=== PATIENT | male | born 1980 | race Caucasian/White ===

== ENCOUNTER 2016-08-13 16:20 | Emergency (ER) | payer SELFPAY ==
[~2016-08-13] VITALS: Ht 190.5 cm; Wt 84.0 kg
[~2016-08-13 16:20] MED LIST: PERC5TAB12 PO; PRAV20TA2 PO; ZOFR4TAB PO
[2016-08-13 16:23] VITALS: BP 143/93; PULSE 97; RESP 24; TEMP 97.4; O2SAT 99
--- NOTE | 2016-08-13 16:29 | PD ---
Physical Exam Date Seen by Provider: Aug 13, 2016 Time Seen by Provider: 16:26 Narrative 35 YOWM 1 WEEK L FLANK PAIN WITH KIDNEY STONE WORSE TODAY WITH PAIN IN SCROTUM, N/V. SUBJECTIVE F/C. POS ABD PAIN. H/O HTN VSS AWAITING BED PLACEMENT Data Data Last Documented VS Vital Signs Date Time Temp Pulse Resp B/P Pulse Ox O2 Delivery O2 Flow Rate FiO2 08/13/16 16:23 97.4 97 24 143/93 99 Room Air [facility] Medical Record Reviewed: Yes Supervised Visit with JOCELIN: Yes Kevin Stewart Aug 13, 2016 16:29
[2016-08-13] MEDS ORDERED: TAMS5CAP PO (20:35)
[2016-08-13] MEDS ORDERED: KETO10 PO (20:35)
[2016-08-13] MEDS ORDERED: PROM25TA5 PO (22:14)
[2016-08-13] MEDS ORDERED: DILA4TAB2 PO (22:14)
== END 2016-08-13 18:00 | disposition left against medical advice (07) ==
LOC: NED 16:20
DX: R10.9 Unspecified abdominal pain (principal); Z53.29 Procedure and treatment not carried out because of patient's decision for other reasons
CPT/HCPCS: 99283

== ENCOUNTER 2016-08-13 18:51 | Emergency (ER) | payer SELFPAY ==
[~2016-08-13] VITALS: Ht 190.5 cm; Wt 109.5 kg
[2016-08-13 19:05] VITALS: BP 149/95; PULSE 86; RESP 18; TEMP 98; O2SAT 100
[2016-08-13] MEDS ORDERED: TAMS5CAP PO (20:35)
[2016-08-13] MEDS ORDERED: KETO10 PO (20:35)
[2016-08-13 20:43] VITALS: BP 153/81; PULSE 85; O2SAT 98
--- NOTE | 2016-08-13 20:58 | PD ---
HPI . Left flank pain Chief Complaint: Flank/Kidney Pain Time Seen by Provider: 20:46 Travel History International Travel<30 days: No Contact w/Intl Traveler<30days: No Traveled to known affect area: No History of Present Illness HPI Patient presents with left flank pain. He states he had an episode of flank pain about a week ago but it spontaneously resolved. It recurred at about 0800 today. He states that it is the same pain that he had a year ago when he had a kidney stone. He is also complaining with vomiting, dysuria and urgency. [id number]: Left flank QUALITY: Colicky SEVERITY: Severe DURATION: 12 hours TIMING: Continuous CONTEXT: History of previous kidney stones ASSOCIATED SYMPTOMS: Vomiting, dysuria and urgency PFSH Past Medical History Hypertension: Yes Kidney Stones: Yes Immunizations Current: Yes Influenza Vaccination: No Past Surgical History Other Surgery: Yes (rt hand 5 years ago) Social History Alcohol Use: Yes (2 BEERS A WEEK) Tobacco Use: No Substance Use: No Allergies-Medications (Allergen,Severity, Reaction): Coded Allergies: No Known Allergies (Verified , 08/13/16) Reported Meds & Prescriptions Reported Meds & Active Scripts Active Pravastatin 20 Mg Tab 20 Mg PO DAILY Reported Ketorolac (Ketorolac Tromethamine) 10 Mg Tab 10 Mg PO Q6HR PRN Flomax (Tamsulosin HCl) 0.4 Mg Cap 0.4 Mg PO HS Zofran (Ondansetron HCl) 4 Mg Tab 4 Mg PO Q4HR PRN Percocet (Oxycodone-Acetaminophen) 5-325 mg Tab 1 Tab PO Q4H PRN Review of Systems Except as stated in HPI: all other systems reviewed are Neg General / Constitutional: No: Fever, Chills Gastrointestinal: Positive: Nausea, Vomiting, No: Diarrhea, Abdominal Pain Genitourinary: Positive: Urgency, Dysuria, Flank Pain Physical Exam Narrative GENERAL: Awake and alert. SKIN: Warm and dry. HEAD: Atraumatic. Normocephalic. EYES: Pupils equal and round. Extraocular movements are intact. ENT: No nasal bleeding or discharge. Mucous membranes pink and moist. NECK: Trachea midline. Neck is supple. CARDIOVASCULAR: Regular rate and rhythm. Heart sounds are normal. RESPIRATORY: No accessory muscle use. Lungs are clear with full air movement throughout. GASTROINTESTINAL: Abdomen soft, non-tender, nondistended. No CVA tenderness. MUSCULOSKELETAL: No obvious deformities. No edema. NEUROLOGICAL: Awake and alert. No obvious cranial nerve deficits. Motor grossly within normal limits. Normal speech. PSYCHIATRIC: Appropriate mood and affect; insight and judgment normal. Data Data Last Documented VS Vital Signs Date Time Temp Pulse Resp B/P Pulse Ox O2 Delivery O2 Flow Rate FiO2 08/13/16 20:43 85 153/81 98 Room Air 08/13/16 19:05 98.0 18 Orders Urinalysis - C+S If Indicated (08/13/16 20:46) Ct Abd/Pel W/O Iv Contrast (08/13/16 20:46) Iv Access Insert/Monitor (08/13/16 20:46) Ketorolac Inj (Toradol Inj) (08/13/16 21:00) Ondansetron Inj (Zofran Inj) (08/13/16 21:00) Sodium Chloride 0.9% Flush (Ns Flush) (08/13/16 21:00) Hydromorphone Pf Inj (Dilaudid Pf Inj) (08/13/16 21:00) Sodium Chlor 0.9% 1000 Ml Inj (Ns 1000 M (08/13/16 21:00) MDM Medical Decision Making Medical Screen Exam Complete: Yes Emergency Medical Condition: Yes Differential Diagnosis Differential diagnosis of flank pain includes but is not limited to kidney stone , pyelonephritis, musculoskeletal pain, PE Narrative Course Patient presents with left flank pain. 9:37 PM Flank pain has completely resolved. Last Impressions Abdomen/Pelvis CT 08/13/162045 Signed Impressions: Service Date/Time: Saturday, August 13, 2016 21:15 - CONCLUSION: The previously seen left distal ureteral stone is larger now almost inside the bladder causing significant hydronephrosis. Patrick Rogers MD The patient reports that his pain has not been controlled by previously prescribed Percocet, Flomax and Toradol. Diagnosis Primary Impression: Kidney stone on left side Referrals: Presley Narayan DO Patient Instructions: General Instructions, Kidney Stones (DC), Narcotic given in the ED Additional Instructions: Follow-up with urology for further treatment as needed. Continue the Flomax. Continue Toradol. Med/Other Pt SpecificInfo: Prescription(s) given Scripts Promethazine (Phenergan)25 Mg Tab25 Mg PO Q6H PRN (Nausea/Vomiting) #10 TAB Ref 0 Prov:Re Coles MD 08/13/16 Hydromorphone (Dilaudid)4 Mg Tab4 Mg PO Q4H PRN (Pain Management) #10 TAB Ref 0 Prov:Re Coles MD 08/13/16 Disposition: 01 DISCHARGE HOME Condition: Stable Re Coles MD Aug 13, 2016 20:58
[2016-08-13] MEDS ORDERED: SODIUM CHLOR 0.9% 1000 ML INJ 1,000 ML IV ONE (21:00)
[2016-08-13] MEDS ORDERED: HYDROmorphone HCL PF 2 MG/ML VIAL IM ONE (21:00)
[2016-08-13] MEDS ORDERED: SODIUM CHLORIDE 0.9% FLUSH 10 ML FLUSH IVF PRN (21:00)
[2016-08-13] MEDS ORDERED: ONDANSETRON HCL 4 MG/2 ML VIAL IVP ONE (21:00)
[2016-08-13] MEDS ORDERED: KETOROLAC TROMETHAMINE 30 MG/ML (IVP) VIAL IVP ONE (21:00)
--- NOTE | 2016-08-13 21:44 | RADHPO ---
EXAM DATE/TIME: 08/13/2016 21:15 [place] COMPARISON: CT ABDOMEN & PELVIS W/O CONTRAST, August 21, 2015, 1:35. INDICATIONS : Left flank pain. ORAL CONTRAST: No oral contrast ingested. RADIATION DOSE: 10.00 CTDIvol (mGy) MEDICAL HISTORY : Hypertension. Gastroesophageal reflux disease. SURGICAL HISTORY : None. ENCOUNTER: Initial ACUITY: 1 day PAIN SCALE: 3/10 LOCATION: Left Flank TECHNIQUE: Volumetric scanning of the abdomen and pelvis was performed. Using automated exposure control and adjustment of the mA and/or kV according to patient size, radiation dose was kept as low as reasonably achievable to obtain optimal diagnostic quality images. FINDINGS: CT Abdomen: The spleen, pancreas, right kidney, adrenals are unremarkable. There is no evidence for a ny appreciable pathological adenopathy, free fluid, or bowel obstruction. There is significant hydron ephrosis in the left kidney due to an approximate 7 mm stone almost inside the bladder. Approximately 1 cm cyst is present in the liver not changed since the prior exam. CT pelvis: There is no evidence for mass, abscess formation, or any significant adenopathy within the pelvis. There is lumbar scoliosis convexity towards the left with superimposed degenerative change. CONCLUSION: The previously seen left distal ureteral stone is larger now almost inside the bladde r causing significant hydronephrosis. Patrick Rogers MD on August 13, 2016 at 21:39 Board Certified Radiologist. This report was verified electronically.
[2016-08-13] MEDS ORDERED: PROM25TA5 PO (22:14)
[2016-08-13] MEDS ORDERED: DILA4TAB2 PO (22:14)
== END 2016-08-13 23:02 | disposition home or self-care (01) ==
LOC: PHED 18:51
DX: N20.0 Calculus of kidney (principal); N13.30 Unspecified hydronephrosis; I10 Essential (primary) hypertension
CPT/HCPCS: 74176; 96361; 96372; 96374; 96375; 99284; J1170; J1885; J2405; J7030